=== PATIENT | male | born 1975 | race Hispanic/Latino ===

== ENCOUNTER 2023-04-07 10:12 | Emergency (ER) | payer OTHER, SELFPAY ==
[2023-04-07 10:13] VITALS: BP 110/86; PULSE 64; RESP 16; TEMP 36.4; O2SAT 97
--- NOTE | 2023-04-07 10:27 | RAD_ITS ---
STUDY: X-RAY - LEFT HAND, ATTENTION THIRD FINGER REASON FOR EXAM: Male, 52 years old. Injury/Pain TECHNIQUE: 3 view(s) of the finger were obtained. COMPARISON: None. FINDINGS: Normal metacarpal head. Normal metacarpophalangeal joint. Normal proximal phalanx. Normal middle phalanx. There is amputation of the distal aspect of the distal phalanx of the third digit with overlying soft tissue laceration. Normal proximal interphalangeal joint. Normal distal interphalangeal joint. RAD/Finger(s) Min 2 Views IMPRESSION: Amputation of the distal portion of the distal phalanx of the third digit without evidence of overlying soft tissue laceration. Electronically Signed: Moises Jama MD at 11:11 EST ,
[2023-04-07 10:29] VITALS: BMI 30.8
--- NOTE | 2023-04-07 10:37 | EX.ED.UPPERE ---
HPI History of Present Illness Chief Complaint: Laceration Detail of Chief Complaint: Crush injury with amputation tip left long finger Informant: patient Limited: language barrier (Cuff [employer] service was used. Total time 7 minutes) Occured/Mechanism Mechanism/Context: Yes injury and Yes blunt trauma Onset/Context/Timing Onset: Today and Hours Context: Sudden Onset Timing: Intermittent Quality of Pain: Throbbing Current Severity: Mild Maximum Severity: Severe Worsened by: Initial injury Relieved by: Rest Associated Symptoms Associated Symptoms: Positive for Loss of Funtion; Negative for Parasthesia or Weakness Narrative Narrative: Patient is a 52-year-old [id number] gentleman who presents with coworker for evaluation of injury to his left long finger. He is right-hand dominant. He reports allergy to penicillin with hives. Tetanus status is unknown. Distal portion of the finger was brought in and placed in a plastic bag. It was not placed on ice. He denies paresthesia, anesthesia or motor weakness. Tetanus Immunization: Unknown Prior similar symptoms: No Recent Illness/Hospitalization: No PFSH PFSH Medical History no medical history no medical history Home Medications clindamycin HCl 300 mg capsule (Cleocin HCl) 300 mg PO Q6H #16 CAPSULES 04/07/23 [Rx Last Taken Unknown] Allergy/AdvReac Type Severity Reaction Status Date / Time Penicillins Allergy Hives Verified 04/07/23 10:13 Surgical History no surgical history no surgical history Social History Smoking Status: Never smoker ROS ROS ED Constitutional Constitutional ED: Denies chills or fever(s) Musculoskeletal Musculoskeletal: Reports other Details: Amputation tip left long finger Integumentary Reports other Details: Amputation distal portion of the left long finger with removal of the nail in its entirety. Neurologic Neurologic: Denies paresthesias Hematologic/Lymphatic Hematologic/Lymphatic: Denies easy bleeding or easy bruising EXAM Physical Exam Const Vital Signs: 04/07/23 10:13 Temperature 97.6 F L Temperature Source Temporal Pulse Rate 64 Respiratory Rate 16 Blood Pressure 110/86 H Blood Pressure Mean 94 Pulse Ox 97 Oxygen Delivery Method Room Air Positive well nourished and well developed General Appearance ED: well developed and NAD HEENT Reports moist mucous membranes normocephalic and atraumatic Eyes PERRL and EOMs intact bilaterally Neck full ROM Resp normal respiratory effort and clear to auscultation bilaterally Cardio regular rate, regular rhythm, S1 normal heart sound, S2 normal heart sound and no murmurs Extremity Negative for normal to inspection Extremity Narrative: Amputation distal portion of the left long finger. The nail was removed in total. The flexor digitorum superficialis and flexor digitorum profundus are functionally intact. The extensor commonest tendon is intact. The distal portion that was brought in is pale. There is not much subcutaneous tissue with the crust portion. Neuro oriented x3 and CN's II-XII intact bilaterally Sensorium / Orientation: alert Skin Skin Narrative: Amputations/skin avulsion distal portion of the left long finger MDM MDM MDM Narrative Medical decision making narrative: Cuff Setter Overlock service was used. Patient was informed IV was ordered to administer IV antibiotics. X-ray will be obtained. Treatment will consist of covering the bone and referral to hand surgeon for revision. Radiography Chest X-Ray - ED: Read by ED Physician (Three-view x-ray of the left long finger reveals amputation of the tip with avulsion of the distal portion of the phalanx. This will be treated as an open fracture. This was obtained reviewed interpreted by me at 03/01/2008.) Procedures Other Procedures Procedure(s): Digit was Nestabs by digital block using 1% lidocaine. Total of 7 cc was infiltrated. The wound was irrigated with 200 cc of normal saline. The distal portion of the phalanx was rongeured back. The volar flap was sutured to the dorsal surface to cover the distal phalanx. There is also a laceration on the volar surface that is 2.3 cm. 2 stitches were placed to approximate the wounds. 3 stitches placed to close the amputated portion. Patient did have some discomfort during the procedure. Case was discussed with Dr. Aleman who is on-call for orthopedics. Would like patient to call office later today or tomorrow for follow-up appointment for revision. Discharge Plan Triage Chief Complaint: Laceration ED Provider: Carlos Starr Dx/Rx/DC Orders Clinical Impression: Amputation of finger tip, Open fracture of phalanx of left middle finger, Laceration of left middle finger Instructions: ED Fracture, Finger, Open Prescriptions: New clindamycin HCl [Cleocin HCl] 300 mg capsule 300 mg PO Q6H Qty: 16 0RF Primary Care Provider: Care Physician,Farrah Primary Referrals: Jelani Aleman, DO [Med Staff - Active Staff] - As soon as possible Care Physician,No Primary [Primary Care Provider] - Activity Restrictions/Additional Instructions: 1. Keep dressing absolutely clean and dry 2. Take antibiotics as prescribed until gone 3. Call Dr. Aleman's office this afternoon or tomorrow morning for follow-up appointment later this week. Disposition Disposition: Home, Self Care
[2023-04-07] MEDS: Diphth,Pertuss(Acell),Tet Vac 0.5 ML Vial IM (10:40)
[2023-04-07] MEDS: Lidocaine 1% (20 ml mdv) 20 ML Vial INFILT (10:41)
[2023-04-07] MEDS: Clindamycin 600 MG/50 ML BAG 100 MG IV (10:51)
[2023-04-07 12:43] VITALS: PULSE 85; PULSE 87; RESP 16; O2SAT 97
== END 2023-04-07 12:45 | disposition home or self-care (01) ==
PROVIDERS: Emergency Provider Emergency Medicine; Visit Provider Emergency Medicine
DX: S68.123A Partial traumatic metacarpophalangeal amputation of left middle finger, initial encounter (principal); Z23 Encounter for immunization; X58.XXXA Exposure to other specified factors, initial encounter; Y99.0 Civilian activity done for income or pay
CPT/HCPCS: 11012; 73140; 90471; 90715; 96365; 99285; J7050; A4216